=== PATIENT | male | born 1980 | race Native Hawaiian/Other Pacific Islander ===

== ENCOUNTER 2024-06-11 19:16 | Inpatient (IN) | payer MEDICAID, OTHER ==
[~2024-06-11] VITALS: Ht 152.4 cm; Wt 46.0 kg
[~2024-06-11 19:16] MED LIST: CHOL25TA4 PO; DOCU-385 PO; LEVO50 PO; SIMV-260 PO
[2024-06-11] MEDS ORDERED: 0.9% SODIUM CHLORIDE 10 ML SYRINGE IVP PRN (20:00)
[2024-06-11] MEDS ORDERED: DIVA-112 PO (20:05)
[2024-06-11] MEDS ORDERED: MIDA5SPR NASAL (20:05)
[2024-06-11] MEDS ORDERED: DIVA-111 PO (20:05)
[2024-06-11] MEDS: SODIUM CHLORIDE 0.9% 1,650 ML IV ONE (20:24)
[2024-06-11 20:30] LABS: BASOPHILS % (AUTO) 0.2 % (0.0-2.0); EOSINOPHILS % (AUTO) 0 % (1.0-6.0); HEMATOCRIT 41.4 % (41-53); HEMOGLOBIN 13.9 g/dL (13.5-17.5); LYMPHOCYTES # (AUTO) 0.9 K/uL (1.0-4.8); LYMPHOCYTES % (AUTO) 6.5 % (22.0-44.0); MEAN CORPUSCULAR HEMOGLOBIN 32.7 pg (26.0-34.0); MEAN CORPUSCULAR HGB CONC 33.6 G/dL (31.0-37.0); MEAN CORPUSCULAR VOLUME 97 fL (80-100); MONOCYTES # (AUTO) 0.5 K/uL (0.1-1.0); MONOCYTES % (AUTO) 3.9 % (2.0-9.0); NEUTROPHILS # (AUTO) 12.3 K/uL (1.8-7.7); PLATELET COUNT (AUTO) 189 K/uL (150-450); RED BLOOD CELL COUNT(AUTO) 4.26 MIL/uL (4.50-5.90); RED CELL DISTRIBUTION WIDTH 14.8 % (11.5-14.5); WHITE BLOOD COUNT (AUTO) 13.8 K/uL (4.5-11.0)
[2024-06-11 20:32] LABS: NEUTROPHILS % (AUTO) 89.4 % (40.0-70.0)
[2024-06-11] MEDS: ACETAMINOPHEN 1000 MG/ISO-OSM 100 ML IV ONE (20:38)
[2024-06-11 20:40] LABS: COVID AG,FIA SOURCE NASAL SWAB
[2024-06-11 20:49] LABS: ANION GAP 6 mmol/L (8-16); CALCIUM, TOTAL 8.1 mg/dL (8.8-10.5); CARBON DIOXIDE 33 mmol/L (22-29); CHLORIDE 95 mmol/L (98-107); GLOMERULAR FILTR. RATE CALC > 60 mL/min (>60); GLUCOSE,RANDOM 114 mg/dL (70-110); POTASSIUM 4.2 mmol/L (3.5-5.1); SODIUM SERUM 134 mmol/L (136-145); UREA NITROGEN, BLOOD 9 mg/dL (7-18)
[2024-06-11] MEDS: CEFEPIME HCL 2 GM in DEXTROSE 5%-WATER 50 ML IV ONE (20:49)
[2024-06-11] MEDS: VANCOMYCIN 1.25 GM/WATER(PEG) 250 ML IV ONE (20:49)
[2024-06-11 20:54] LABS: ALANINE AMINOTRANSFERASE 16 U/L (12-78); ALBUMIN 2.7 g/dL (3.4-5.0); ALKALINE PHOSPHATASE 70 U/L (46-116); ASPARTATE AMINOTRANSFERASE 18 U/L (15-37); BILIRUBIN,TOTAL 0.6 mg/dL (0.1-1.0); TOTAL PROTEIN, SERUM 7.1 g/dL (6.4-8.2)
[2024-06-11 21:03] LABS: LACTIC ACID 2.2 mmol/L (0.4-2.0)
[2024-06-11 21:15] LABS: SARS-COV2 (COVID) ANTIGEN,FIA Negative (Negative)
[2024-06-11 21:16] LABS: INFLUENZA TYPE A NEGATIVE FOR TYPE A (NEGATIVE); INFLUENZA TYPE B NEGATIVE FOR TYPE B (NEGATIVE)
[2024-06-11 21:17] LABS: APPEARANCE,URINE HAZY (CLEAR); BILIRUBIN,URINE NEGATIVE (NEGATIVE); COLOR,URINE YELLOW (YELLOW); GLUCOSE, URINE (UA) NEGATIVE (NEGATIVE); KETONES,URINE NEGATIVE (NEGATIVE); LEUKOCYTE ESTERASE ,URINE NEGATIVE (NEGATIVE); NITRATE,URINE NEGATIVE (NEGATIVE); OCCULT BLOOD,URINE NEGATIVE (NEGATIVE); PROTEIN,URINE NEGATIVE (NEGATIVE); SPECIFIC GRAVITIY, URINE 1.013 (1.003-1.030); UROBILINOGEN,URINE <=1.0 mg/dL (<=1.0)
[2024-06-11 21:34] LABS: THYROID STIMULATING HORMONE 7.63 uIU/mL (0.36-3.74)
[2024-06-11] MEDS: PHENYTOIN SODIUM 500 MG in SODIUM CHLORIDE 0.9% 100 ML IV ONE (22:06)
[2024-06-11] MEDS: *CLINICAL-CEFEPIME DOSING CLINICAL ONE (22:11)
[2024-06-11] MEDS ORDERED: ONDANSETRON HCL 4 MG/2 ML VIAL IVP PRN (22:15)
[2024-06-11] MEDS ORDERED: SODIUM CHLORIDE 0.9% 100 ML ONE (22:26)
[2024-06-11] MEDS ORDERED: IOHEXOL 350 MG/ML 100 ML VIAL ONE (22:26)
[2024-06-11 23:04] LABS: ABG BASE EXCESS -2.4 mmol/L (-2.0-3.0); ABG CARBOXYHEMOGLOBIN 0.3 % (0.5-1.5); ABG HCO3 23.1 mmol/L (21.0-28.0); ABG OXYGEN CONTENT 18.1 mL/dL (15.0-23.0); ABG OXYGEN SATURATION 99.6 % (94.0-98.0); ABG OXYHEMOGLOBIN 98.3 % (94.0-98.0); ABG PCO2 33 mmHg (32.0-48.0); ABG PH 7.434 (7.350-7.450); ABG TOTAL HEMOGLOBIN 12.6 G/dL (13.5-17.5); PO2, ARTERIAL BG 297.1 mmHg (83.0-108.0); SOURCE, BLOOD GAS ARTERIAL; TEMPERATURE, FAHRENHEIT, BG 99.3 FAHREN (96.0-98.6)
[2024-06-11] MEDS: NOREPINEPHRINE 8 MG/0.9 % NACL 250 ML IV PRN ×2 (23:33→23:54)
[2024-06-11] MEDS: HEPARIN SODIUM,PORCINE 5,000 UNITS/ML VIAL SQ SCH (23:44)
[2024-06-11 23:56] LABS: ABG A-A DIFF O2 165.5 mmHg (10-20.0); ALLEN TEST, BLOOD GAS Positive; O2 DEVICE,BLOOD GAS NON REBREATHER (ROOM AIR); SITE, BLOOD GAS LFT RADIAL
[2024-06-12] MEDS ORDERED: [UNRECOGNIZED DRUG - OTHER] NASAL PRN (00:15)
[2024-06-12] MEDS: HYDROCORTISONE SOD SUCC 250 MG/2 ML VIAL IVP ONE (00:43)
[2024-06-12 00:44] LABS: FREE T4 (FREE THYROXINE) 1.02 ng/dL (0.76-1.46)
[2024-06-12] MEDS: VALPROATE SODIUM 500 MG in DEXTROSE 5%-WATER 50 ML IV SCH ×2 (00:44→21:25)
[2024-06-12] MEDS: CEFEPIME HCL 2 GM in DEXTROSE 5%-WATER 50 ML IV SCH (03:04)
[2024-06-12 05:52] LABS: BASOPHILS % (AUTO) 0.1 % (0.0-2.0); EOSINOPHILS % (AUTO) 0 % (1.0-6.0); HEMOGLOBIN 14.6 g/dL (13.5-17.5); LYMPHOCYTES % (AUTO) 5.2 % (22.0-44.0); MEAN CORPUSCULAR HEMOGLOBIN 33.1 pg (26.0-34.0); MEAN CORPUSCULAR VOLUME 97 fL (80-100); MONOCYTES # (AUTO) 0.3 K/uL (0.1-1.0); MONOCYTES % (AUTO) 1.4 % (2.0-9.0); NEUTROPHILS # (AUTO) 18.7 K/uL (1.8-7.7); PLATELET COUNT (AUTO) 232 K/uL (150-450); RED BLOOD CELL COUNT(AUTO) 4.42 MIL/uL (4.50-5.90); RED CELL DISTRIBUTION WIDTH 14.9 % (11.5-14.5)
[2024-06-12 06:01] LABS: NEUTROPHILS % (AUTO) 93.3 % (40.0-70.0)
[2024-06-12 06:03] LABS: ANION GAP 6 mmol/L (8-16); CALCIUM, TOTAL 8.3 mg/dL (8.8-10.5); CARBON DIOXIDE 29 mmol/L (22-29); CHLORIDE 104 mmol/L (98-107); GLOMERULAR FILTR. RATE CALC > 60 mL/min (>60); GLUCOSE,RANDOM 197 mg/dL (70-110); SODIUM SERUM 139 mmol/L (136-145); UREA NITROGEN, BLOOD 9 mg/dL (7-18)
[2024-06-12] MEDS: DOCUSATE SODIUM 100 MG CAPSULE PO SCH (07:21)
[2024-06-12] MEDS ORDERED: VANCOMYCIN 750 MG/WATER(PEG) 150 ML IV SCH (08:00)
[2024-06-12] MEDS: VANCOMYCIN HCL 750 MG in DEXTROSE 5%-WATER 250 ML IV SCH (08:14)
[2024-06-12] MEDS: LEVOTHYROXINE SODIUM 100 MCG VIAL IVP SCH (09:30)
[2024-06-12] MEDS: VALPROATE SODIUM 250 MG in DEXTROSE 5%-WATER 50 ML IV SCH (09:45)
[2024-06-12] MEDS: SODIUM CHLORIDE 0.9% 500 ML IV ONE (14:28)
[2024-06-12] MEDS: MIDODRINE HCL 5 MG TABLET PO ONE (14:28)
[2024-06-13] VITALS (9 sets, daily range): BP systolic 74–130; BP diastolic 41–63; PULSE 47–96; RESP 14–18; TEMP 97.6–99; O2SAT 90–100
[2024-06-13] MEDS ORDERED: SODIUM CHLORIDE 0.9% 500 ML IV ONE ×2 (04:01→09:51)
[2024-06-13 07:33] LABS: ANION GAP 4 mmol/L (8-16); CALCIUM, TOTAL 8.2 mg/dL (8.8-10.5); CARBON DIOXIDE 32 mmol/L (22-29); CHLORIDE 102 mmol/L (98-107); CREATININE 0.82 mg/dL (0.60-1.30); GLOMERULAR FILTR. RATE CALC > 60 mL/min (>60); GLUCOSE,RANDOM 97 mg/dL (70-110); POTASSIUM 3.5 mmol/L (3.5-5.1); SODIUM SERUM 138 mmol/L (136-145); UREA NITROGEN, BLOOD 8 mg/dL (7-18)
[2024-06-13] MEDS ORDERED: MIDODRINE HCL 5 MG TABLET PO SCH (09:00)
[2024-06-13] MEDS ORDERED: SODIUM CHLORIDE 0.9% 1,000 ML ONE (09:34)
[2024-06-13] MEDS: MIDODRINE HCL 5 MG TABLET PO SCH (09:57)
[2024-06-13] MEDS ORDERED: SODIUM CHLORIDE 0.9% 250 ML IV ONE (15:30)
[2024-06-14] VITALS: BP 112/40; PULSE 63; RESP 17; TEMP 98.2; O2SAT 97
[2024-06-14 04:00] VITALS: BP 107/65; PULSE 50; RESP 15; TEMP 98.3; O2SAT 99
[2024-06-14 06:09] LABS: BASOPHILS % (AUTO) 0.6 % (0.0-2.0); EOSINOPHILS % (AUTO) 0.2 % (1.0-6.0); HEMATOCRIT 39.1 % (41-53); HEMOGLOBIN 13.7 g/dL (13.5-17.5); LYMPHOCYTES # (AUTO) 1.6 K/uL (1.0-4.8); MEAN CORPUSCULAR HEMOGLOBIN 34.1 pg (26.0-34.0); MEAN CORPUSCULAR VOLUME 98 fL (80-100); MONOCYTES # (AUTO) 0.6 K/uL (0.1-1.0); MONOCYTES % (AUTO) 5.6 % (2.0-9.0); NEUTROPHILS # (AUTO) 8.3 K/uL (1.8-7.7); NEUTROPHILS % (AUTO) 78.6 % (40.0-70.0); PLATELET COUNT (AUTO) 183 K/uL (150-450); RED CELL DISTRIBUTION WIDTH 14.8 % (11.5-14.5); WHITE BLOOD COUNT (AUTO) 10.5 K/uL (4.5-11.0)
[2024-06-14] MEDS: LEVOTHYROXINE SODIUM 88 MCG TABLET GT SCH (06:16)
[2024-06-14 06:26] LABS: ANION GAP 5 mmol/L (8-16); CALCIUM, TOTAL 8.1 mg/dL (8.8-10.5); CARBON DIOXIDE 32 mmol/L (22-29); CHLORIDE 101 mmol/L (98-107); CREATININE 0.79 mg/dL (0.60-1.30); GLOMERULAR FILTR. RATE CALC > 60 mL/min (>60); GLUCOSE,RANDOM 100 mg/dL (70-110); POTASSIUM 3.3 mmol/L (3.5-5.1); SODIUM SERUM 138 mmol/L (136-145); UREA NITROGEN, BLOOD 7 mg/dL (7-18)
[2024-06-14 08:00] VITALS: BP 104/63; PULSE 59; RESP 18; TEMP 98.8; O2SAT 97
[2024-06-14] MEDS: POTASSIUM CHLORIDE 10% 40 MEQ/30 ML LIQUID UDCUP PO ONE (08:09)
[2024-06-14] MEDS: HYDROCORTISONE SOD SUCC 100 MG/2 ML VIAL IVP ONE (08:09)
[2024-06-14] MEDS: ACETAMINOPHEN 325 MG TABLET PO PRN (08:09)
[2024-06-14 12:00] VITALS: BP 97/52; PULSE 44; RESP 14; TEMP 99.3; O2SAT 96
[2024-06-14 16:00] VITALS: BP 95/56; PULSE 45; RESP 15; TEMP 98.7; O2SAT 96
[2024-06-14 20:00] VITALS: BP 129/47; PULSE 91; RESP 15; TEMP 99.4; O2SAT 96
[2024-06-14] MEDS: DOCUSATE SODIUM 100 MG/10 ML LIQUID UDCUP PO SCH (21:09)
[2024-06-15] VITALS: BP 110/67; PULSE 59; RESP 16; TEMP 99.1; O2SAT 95
[2024-06-15 04:00] VITALS: BP 97/60; PULSE 55; RESP 15; TEMP 98.9; O2SAT 96
[2024-06-15 06:53] LABS: ANION GAP 3 mmol/L (8-16); CALCIUM, TOTAL 8.3 mg/dL (8.8-10.5); CARBON DIOXIDE 35 mmol/L (22-29); CHLORIDE 101 mmol/L (98-107); CREATININE 0.89 mg/dL (0.60-1.30); GLOMERULAR FILTR. RATE CALC > 60 mL/min (>60); GLUCOSE,RANDOM 101 mg/dL (70-110); POTASSIUM 3.9 mmol/L (3.5-5.1); SODIUM SERUM 139 mmol/L (136-145); UREA NITROGEN, BLOOD 8 mg/dL (7-18); VANCOMYCIN,RANDOM 32.5 mcg/mL (25.0-50.0)
[2024-06-15 08:00] VITALS: BP 94/59; PULSE 107; RESP 12; TEMP 97.9; O2SAT 89
[2024-06-15 12:00] VITALS: BP 81/46; PULSE 49; RESP 12; TEMP 98.3; O2SAT 95
[2024-06-15 16:00] VITALS: BP 99/51; PULSE 53; RESP 12; TEMP 98.9; O2SAT 95
[2024-06-15 20:00] VITALS: BP 123/41; PULSE 48; RESP 16; TEMP 99.6; O2SAT 91
[2024-06-15] MEDS ORDERED: VANCOMYCIN 750 MG/WATER(PEG) 150 ML IV SCH (20:00)
[2024-06-15] MEDS: VANCOMYCIN HCL 750 MG in DEXTROSE 5%-WATER 250 ML IV SCH (20:35)
[2024-06-16] VITALS: BP 118/87; PULSE 64; RESP 16; TEMP 99.6; O2SAT 88
[2024-06-16 04:00] VITALS: BP 115/53; PULSE 67; RESP 18; TEMP 98.2; O2SAT 92
[2024-06-16] MEDS ORDERED: SODIUM CHLORIDE 0.9% 250 ML IV ONE ×2 (04:46→11:23)
[2024-06-16 06:25] LABS: ANION GAP 3 mmol/L (8-16); CARBON DIOXIDE 37 mmol/L (22-29); CHLORIDE 102 mmol/L (98-107); CREATININE 0.99 mg/dL (0.60-1.30); GLOMERULAR FILTR. RATE CALC > 60 mL/min (>60); GLUCOSE,RANDOM 121 mg/dL (70-110); POTASSIUM 3.7 mmol/L (3.5-5.1); SODIUM SERUM 142 mmol/L (136-145); UREA NITROGEN, BLOOD 10 mg/dL (7-18)
[2024-06-16 08:00] VITALS: BP 123/33; PULSE 48; RESP 18; TEMP 98.1; O2SAT 89
[2024-06-16 12:00] VITALS: BP 121/84; PULSE 44; RESP 12; TEMP 97.9; O2SAT 100
[2024-06-16 16:00] VITALS: BP 102/54; PULSE 50; RESP 12; TEMP 97.8; O2SAT 96
[2024-06-16] MEDS: MIDODRINE HCL 5 MG TABLET PO SCH (17:17)
[2024-06-16 20:00] VITALS: BP 116/38; PULSE 48; RESP 16; TEMP 99.9
[2024-06-16] MEDS: ETHYL ALCOHOL 62% ANTISEPTIC NASAL SANITIZER 0.6 ML AMPUL NASAL SCH (21:18)
[2024-06-17] VITALS (8 sets, daily range): BP systolic 81–132; BP diastolic 44–75; PULSE 50–83; RESP 12–17; TEMP 96.2–98.9; O2SAT 89–98
[2024-06-17 06:29] LABS: BASOPHILS % (AUTO) 0.4 % (0.0-2.0); EOSINOPHILS % (AUTO) 1.6 % (1.0-6.0); HEMATOCRIT 41.3 % (41-53); HEMOGLOBIN 13.9 g/dL (13.5-17.5); LYMPHOCYTES # (AUTO) 1.9 K/uL (1.0-4.8); LYMPHOCYTES % (AUTO) 25.8 % (22.0-44.0); MEAN CORPUSCULAR HEMOGLOBIN 33.4 pg (26.0-34.0); MEAN CORPUSCULAR HGB CONC 33.7 G/dL (31.0-37.0); MEAN CORPUSCULAR VOLUME 99 fL (80-100); MONOCYTES # (AUTO) 0.7 K/uL (0.1-1.0); MONOCYTES % (AUTO) 9.8 % (2.0-9.0); NEUTROPHILS # (AUTO) 4.6 K/uL (1.8-7.7); NEUTROPHILS % (AUTO) 62.4 % (40.0-70.0); PLATELET COUNT (AUTO) 256 K/uL (150-450); RED BLOOD CELL COUNT(AUTO) 4.18 MIL/uL (4.50-5.90); WHITE BLOOD COUNT (AUTO) 7.4 K/uL (4.5-11.0)
[2024-06-17 06:42] LABS: ANION GAP 2 mmol/L (8-16); CALCIUM, TOTAL 8.6 mg/dL (8.8-10.5); CARBON DIOXIDE 38 mmol/L (22-29); CHLORIDE 100 mmol/L (98-107); CREATININE 1.03 mg/dL (0.60-1.30); GLOMERULAR FILTR. RATE CALC > 60 mL/min (>60); GLUCOSE,RANDOM 113 mg/dL (70-110); POTASSIUM 4.3 mmol/L (3.5-5.1); SODIUM SERUM 140 mmol/L (136-145); UREA NITROGEN, BLOOD 11 mg/dL (7-18); VANCOMYCIN,RANDOM 20.4 mcg/mL (25.0-50.0)
[2024-06-18] VITALS (7 sets, daily range): BP systolic 91–140; BP diastolic 47–63; PULSE 48–106; RESP 12–21; TEMP 98.1–98.9; O2SAT 93–98
[2024-06-18] MEDS ORDERED: SODIUM CHLORIDE 0.9% 250 ML IV ONE (02:26)
[2024-06-18 06:17] LABS: BASOPHILS % (AUTO) 0.2 % (0.0-2.0); EOSINOPHILS % (AUTO) 1.3 % (1.0-6.0); HEMATOCRIT 39.7 % (41-53); HEMOGLOBIN 13.8 g/dL (13.5-17.5); LYMPHOCYTES # (AUTO) 2.3 K/uL (1.0-4.8); LYMPHOCYTES % (AUTO) 18.9 % (22.0-44.0); MEAN CORPUSCULAR HEMOGLOBIN 33.9 pg (26.0-34.0); MEAN CORPUSCULAR HGB CONC 34.8 G/dL (31.0-37.0); MEAN CORPUSCULAR VOLUME 97 fL (80-100); MONOCYTES # (AUTO) 1.2 K/uL (0.1-1.0); MONOCYTES % (AUTO) 10.1 % (2.0-9.0); NEUTROPHILS # (AUTO) 8.3 K/uL (1.8-7.7); NEUTROPHILS % (AUTO) 69.5 % (40.0-70.0); PLATELET COUNT (AUTO) 256 K/uL (150-450); RED BLOOD CELL COUNT(AUTO) 4.08 MIL/uL (4.50-5.90); RED CELL DISTRIBUTION WIDTH 14.5 % (11.5-14.5)
[2024-06-18 06:20] LABS: ANION GAP 4 mmol/L (8-16); CALCIUM, TOTAL 8.6 mg/dL (8.8-10.5); CARBON DIOXIDE 35 mmol/L (22-29); CHLORIDE 97 mmol/L (98-107); CREATININE 0.96 mg/dL (0.60-1.30); GLOMERULAR FILTR. RATE CALC > 60 mL/min (>60); GLUCOSE,RANDOM 105 mg/dL (70-110); POTASSIUM 4.6 mmol/L (3.5-5.1); SODIUM SERUM 136 mmol/L (136-145); UREA NITROGEN, BLOOD 12 mg/dL (7-18)
[2024-06-18] MEDS: MIDODRINE HCL 5 MG TABLET PO SCH (13:28)
[2024-06-19] VITALS: BP 88/56; PULSE 64; RESP 16; TEMP 99.2; O2SAT 95
[2024-06-19 04:00] VITALS: BP 116/52; PULSE 54; RESP 12; TEMP 98.9; O2SAT 96
[2024-06-19] MEDS ORDERED: SODIUM CHLORIDE 0.9% 250 ML IV ONE (06:06)
[2024-06-19 06:32] LABS: BASOPHILS % (AUTO) 0.6 % (0.0-2.0); EOSINOPHILS % (AUTO) 2.1 % (1.0-6.0); HEMATOCRIT 34.8 % (41-53); HEMOGLOBIN 12.1 g/dL (13.5-17.5); LYMPHOCYTES # (AUTO) 1.7 K/uL (1.0-4.8); LYMPHOCYTES % (AUTO) 19.3 % (22.0-44.0); MEAN CORPUSCULAR HEMOGLOBIN 33.9 pg (26.0-34.0); MEAN CORPUSCULAR HGB CONC 34.8 G/dL (31.0-37.0); MEAN CORPUSCULAR VOLUME 98 fL (80-100); MONOCYTES # (AUTO) 0.8 K/uL (0.1-1.0); MONOCYTES % (AUTO) 9.4 % (2.0-9.0); NEUTROPHILS % (AUTO) 68.6 % (40.0-70.0); PLATELET COUNT (AUTO) 269 K/uL (150-450); RED BLOOD CELL COUNT(AUTO) 3.57 MIL/uL (4.50-5.90); RED CELL DISTRIBUTION WIDTH 14.9 % (11.5-14.5); WHITE BLOOD COUNT (AUTO) 8.8 K/uL (4.5-11.0)
[2024-06-19 06:42] LABS: ANION GAP 4 mmol/L (8-16); CALCIUM, TOTAL 8.5 mg/dL (8.8-10.5); CARBON DIOXIDE 34 mmol/L (22-29); CHLORIDE 93 mmol/L (98-107); CREATININE 0.97 mg/dL (0.60-1.30); GLOMERULAR FILTR. RATE CALC > 60 mL/min (>60); GLUCOSE,RANDOM 88 mg/dL (70-110); POTASSIUM 4.4 mmol/L (3.5-5.1); SODIUM SERUM 131 mmol/L (136-145); UREA NITROGEN, BLOOD 13 mg/dL (7-18)
[2024-06-19 08:00] VITALS: BP 113/42; PULSE 55; RESP 12; TEMP 97.3; O2SAT 97
[2024-06-19 12:00] VITALS: BP 99/51; PULSE 47; RESP 11; TEMP 97.8; O2SAT 97
[2024-06-19 16:00] VITALS: BP 86/64; PULSE 50; RESP 10; TEMP 98; O2SAT 94
[2024-06-19] MEDS: VALPROIC ACID 250 MG CAPSULE PO SCH ×2 (17:37→21:19)
[2024-06-19 20:00] VITALS: BP 104/75; PULSE 47; RESP 17; TEMP 98.8; O2SAT 96
[2024-06-20] VITALS (11 sets, daily range): BP systolic 80–125; BP diastolic 38–74; PULSE 45–128; RESP 11–18; TEMP 97.4–99; O2SAT 92–100
[2024-06-20] MEDS ORDERED: SODIUM CHLORIDE 0.9% 500 ML IV ONE (02:57)
[2024-06-20] MEDS: SODIUM CHLORIDE 0.9% 250 ML IV ONE (04:05)
[2024-06-20] MEDS: MIDODRINE HCL 5 MG TABLET PO ONE (04:07)
[2024-06-20 08:02] LABS: BASOPHILS % (AUTO) 1.2 % (0.0-2.0); EOSINOPHILS % (AUTO) 2.4 % (1.0-6.0); HEMATOCRIT 36.2 % (41-53); HEMOGLOBIN 12.6 g/dL (13.5-17.5); LYMPHOCYTES # (AUTO) 1.5 K/uL (1.0-4.8); LYMPHOCYTES % (AUTO) 19.3 % (22.0-44.0); MEAN CORPUSCULAR HEMOGLOBIN 34.1 pg (26.0-34.0); MEAN CORPUSCULAR HGB CONC 34.7 G/dL (31.0-37.0); MEAN CORPUSCULAR VOLUME 98 fL (80-100); MONOCYTES # (AUTO) 0.8 K/uL (0.1-1.0); MONOCYTES % (AUTO) 9.9 % (2.0-9.0); NEUTROPHILS # (AUTO) 5.2 K/uL (1.8-7.7); NEUTROPHILS % (AUTO) 67.2 % (40.0-70.0); PLATELET COUNT (AUTO) 270 K/uL (150-450); RED BLOOD CELL COUNT(AUTO) 3.68 MIL/uL (4.50-5.90); WHITE BLOOD COUNT (AUTO) 7.7 K/uL (4.5-11.0)
[2024-06-20 08:18] LABS: ANION GAP 1 mmol/L (8-16); CALCIUM, TOTAL 8.3 mg/dL (8.8-10.5); CARBON DIOXIDE 34 mmol/L (22-29); CHLORIDE 97 mmol/L (98-107); CREATININE 0.88 mg/dL (0.60-1.30); GLOMERULAR FILTR. RATE CALC > 60 mL/min (>60); GLUCOSE,RANDOM 88 mg/dL (70-110); POTASSIUM 4.2 mmol/L (3.5-5.1); SODIUM SERUM 132 mmol/L (136-145); UREA NITROGEN, BLOOD 16 mg/dL (7-18); VANCOMYCIN,RANDOM 23.3 mcg/mL (25.0-50.0)
[2024-06-20] MEDS: VANCOMYCIN 500 MG/WATER(PEG) 100 ML IV SCH (20:19)
[2024-06-21 00:21] VITALS: BP 94/50; PULSE 67; RESP 16; TEMP 98.7; O2SAT 97
[2024-06-21 04:00] VITALS: BP 94/58; PULSE 61; RESP 15; TEMP 98.6; O2SAT 95
[2024-06-21 06:44] LABS: BASOPHILS % (AUTO) 1.4 % (0.0-2.0); EOSINOPHILS % (AUTO) 1.3 % (1.0-6.0); HEMATOCRIT 36.1 % (41-53); HEMOGLOBIN 12.3 g/dL (13.5-17.5); LYMPHOCYTES # (AUTO) 1.7 K/uL (1.0-4.8); LYMPHOCYTES % (AUTO) 20.9 % (22.0-44.0); MEAN CORPUSCULAR HEMOGLOBIN 33.5 pg (26.0-34.0); MEAN CORPUSCULAR VOLUME 98 fL (80-100); MONOCYTES # (AUTO) 0.8 K/uL (0.1-1.0); MONOCYTES % (AUTO) 9.9 % (2.0-9.0); NEUTROPHILS # (AUTO) 5.5 K/uL (1.8-7.7); NEUTROPHILS % (AUTO) 66.5 % (40.0-70.0); PLATELET COUNT (AUTO) 295 K/uL (150-450); RED BLOOD CELL COUNT(AUTO) 3.66 MIL/uL (4.50-5.90); RED CELL DISTRIBUTION WIDTH 15.3 % (11.5-14.5); WHITE BLOOD COUNT (AUTO) 8.3 K/uL (4.5-11.0)
[2024-06-21 07:01] LABS: ANION GAP 3 mmol/L (8-16); CALCIUM, TOTAL 8.6 mg/dL (8.8-10.5); CARBON DIOXIDE 34 mmol/L (22-29); CHLORIDE 97 mmol/L (98-107); CREATININE 0.99 mg/dL (0.60-1.30); GLOMERULAR FILTR. RATE CALC > 60 mL/min (>60); GLUCOSE,RANDOM 91 mg/dL (70-110); POTASSIUM 3.9 mmol/L (3.5-5.1); SODIUM SERUM 134 mmol/L (136-145); UREA NITROGEN, BLOOD 17 mg/dL (7-18)
[2024-06-21 07:47] VITALS: BP 103/61; PULSE 96; RESP 16; TEMP 98.2; O2SAT 95
[2024-06-21] MEDS ORDERED: AMOX-457 PO (10:20)
[2024-06-21] MEDS ORDERED: MIDO5TAB29 PO (10:20)
[2024-06-21] MEDS ORDERED: LEVO88TA7 GT (10:20)
[2024-06-21] MEDS ORDERED: LEVO750T68 PO (10:26)
[2024-06-21 12:43] VITALS: BP 97/45; PULSE 49; RESP 16; TEMP 98.5; O2SAT 96
== END 2024-06-21 15:20 | disposition home or self-care (01) | DRG 720 ==
LOC: EMS 19:16 → EDH 22:33 → 5N 06-13 01:41 → ICU 06-13 14:00 → 5N 06-20 00:10
PROVIDERS: ADMIT Internal Medicine; ATTEND Internal Medicine
DX: A41.9 Sepsis, unspecified organism (principal); J96.01 Acute respiratory failure with hypoxia; R65.21 Severe sepsis with septic shock; G93.41 Metabolic encephalopathy; E43 Unspecified severe protein-calorie malnutrition; R16.0 Hepatomegaly, not elsewhere classified; J18.9 Pneumonia, unspecified organism; E11.8 Type 2 diabetes mellitus with unspecified complications; Z20.822 Contact with and (suspected) exposure to COVID-19; E03.9 Hypothyroidism, unspecified; G40.909 Epilepsy, unspecified, not intractable, without status epilepticus; R41.89 Other symptoms and signs involving cognitive functions and awareness; N47.2 Paraphimosis; G80.9 Cerebral palsy, unspecified; N48.89 Other specified disorders of penis; K44.9 Diaphragmatic hernia without obstruction or gangrene; N28.1 Cyst of kidney, acquired; F17.200 Nicotine dependence, unspecified, uncomplicated; Q90.9 Down syndrome, unspecified; Z79.899 Other long term (current) drug therapy; Z68.1 Body mass index [BMI] 19.9 or less, adult
CPT/HCPCS: 70450; 71045; 74177; 80048; 80053; 80202; 81003; 82533; 82805; 83605; 83735; 84439; 84443; 85025; 85730; 87040; 87077; 87081; 87205; 87481; 87804; 92526; 92610; 93005; 99285; G0378; J0131; J0692; J1165; J1644; J1720; J3370; J3490; J7030; J7040; J7050; J7060; 36415-L1; 36415-TC